=== PATIENT | female | born 1965 | race Caucasian/White ===

== ENCOUNTER → 2017-06-25 | Outpatient (CLI) | payer BC ==
--- NOTE | 2017-06-25 12:34 | DIAGNOSTIC IMAGING REPORT ---
LEFT SHOULDER MRI HISTORY: Left shoulder pain. TECHNIQUE: Multiplanar multisequence MRI of the left shoulder was performed without contrast. COMPARISON STUDY: None. FINDINGS: AC joint: There is moderate AC joint arthrosis demonstrated by subchondral edema/cystic change and mild surrounding soft tissue edema. Rotator cuff: The subscapularis and teres minor tendons are intact. Small partial bursal surface tear seen within the distal infraspinatus tendon. There is also a focal full-thickness tear of the supraspinatus tendon which measures approximate 17 x 13 mm. There is edema at the musculotendinous junction of the supraspinatus muscle. Trace fluid within the subacromial/subdeltoid bursa. Mild fatty atrophy of the supraspinatus muscle. Labrum: Abnormal signal configuration the superior labrum consistent with a SLAP tear. Biceps tendon: Increased signal within the proximal long head of the biceps tendon consistent with a mild tendinopathy. Bones: No fracture or dislocation. Cartilage: Mild cartilage thinning within the humeral head and glenoid. Miscellaneous: Punctate hypointense focus adjacent to the musculotendinous junction of the supraspinatus which may be due to old postoperative change. IMPRESSION: 1. Focal 17 x 13 mm full-thickness tear of the supraspinatus tendon without significant retraction. 2. There is also small partial tear at the bursal surface of the distal infraspinatus tendon. 3. SLAP tear. Electronically signed by: Terry Marrero M.D. 06/25/2017 12:32 PM Dictated Date/Time: 06/25/2017 12:25 PM
== END | disposition home or self-care (01) ==
LOC: C.MRIBC 10:43
PROVIDERS: ATTEND Orthopaedic Surgery
DX: S46.912A Strain of unspecified muscle, fascia and tendon at shoulder and upper arm level, left arm, initial encounter (principal); X58.XXXA Exposure to other specified factors, initial encounter

== ENCOUNTER → 2017-07-31 | Day surgery (SDC) | payer BC ==
[2017-07-15 10:53] VITALS: Ht 162.6 cm; Wt 67.3 kg
[~2017-07-31] VITALS: Ht 162.6 cm; Wt 67.3 kg
[~2017-07-31] MED LIST: ATROPINE SULFATE 0.1 MG/ML 5ML SYR IV PRN; BUPIVACAINE 0.25% 30 ML VIAL ONE; BUPIVACAINE 0.5 % 5 MG/1 ML MPF 30ML VIAL ONE; CEFAZOLIN 2000MG IV PUSH 15 ML IV SCH; DEXAMETHASONE SOD INJ 4 MG/ML VIAL ONE; DOXY25TA19 PO; EpHEDrine SULFATE INJ 50 MG/ML AMP IV PRN; EpINEphrine INJ 1MG/ML AMP 1 MG/ML AMP ONE; FENTANYL CITRATE INJ 50 MCG/1 ML 2 ML VIAL IV PRN; FENTANYL CITRATE INJ 50 MCG/1 ML 2 ML VIAL ONE; KETO10TA PO; KETOROLAC TROMETHAMINE 30 MG/ML VIAL IV. PRN; LACTATED RINGER'S 1000ML 1,000 ML IV SCH; LIDOCAINE HCL 2% 2 ML VIAL (20MG/ML) ONE; MIDAZOLAM HCL 1 MG/ML 2ML VIAL ONE; ONDANSETRON INJ 2 MG/ML 2 ML VIAL IV PRN; ONDANSETRON INJ 2 MG/ML 2 ML VIAL ONE; OXYC-57 PO; OXYCODONE/ACETAMINOPHEN 5-325 TAB PO PRN; PROMETHAZINE HCL INJ 6.25 MG in SODIUM CHLORIDE 0.9% 50ML 50 ML IV PRN; PROPOFOL IV EMULSION 10 MG/ML 20 ML VIAL IV ONE; SODIUM CHLORIDE 0.9% 1000ML 1,000 ML IV SCH
--- NOTE | 2017-07-31 09:28 | History & Physical Bridge - SC ---
H&P Re-Evaluation Bridge Note: I have examined the patient, reviewed the History & Physical and in the interval since the performance of the History & Physical I have noted the following changes of clinical significance: No changes noted
--- NOTE | 2017-07-31 11:58 | [facility] Post Operative Brief Note ---
Immediate Operative Summary Operative Date Jul 31, 2017. Pre-Operative Diagnosis Chronic pain right upper limb, full thickness tear Post-Operative Diagnosis same as preop Procedure(s) Performed Left Shoulder Arthroscopic Medium Rotator cuff Repair with Extensive Debridement Surgeon Dr. Castro Collections Assistant Surgeon(s) GALEN Farmer Estimated Blood Loss 5ML Findings Consistent with Post-Op Diagnosis Specimens none Anesthesia Type MAC Regional Complication(s) none Disposition Disposition: Recovery Room / PACU
[2017-07-31 12:06] VITALS: TEMP 36.6
--- NOTE | 2017-07-31 12:10 | Discharge Instructions-SurgCtr ---
Discharge Instructions Date of Service Jul 31, 2017. Visit Reason for Visit: Chronic Pain Right Upper Limb, Full Thickness Tear Discharge Discharge Diagnosis / Problem: SAME ABOVE Discharge Goals Goal(s): Decrease discomfort, Improve function Activity Recommendations Activity Limitations: as noted below Lifting Limitations: until after follow-up appointment Shower/Bathe: tomorrow Anesthesia . Post Anesthesia Instructions: If you have had General Anesthesia or IV Sedation: * Do not drive today. * Resume driving when surgeon permits. * Do not make important decisions or sign legal documents today. * Call surgeon for: 1. Temperature elevations greater than 101 degrees F. 2. Uncontrollable pain. 3. Excessive bleeding. 4. Persistent nausea and vomiting. 5. Medication intolerance (nausea, vomiting or rash). * For nausea and vomiting use only clear liquids such as: tea, soda, bouillon until nausea subsides, then gradually increase diet as tolerated. * If you have any concerns or questions, call your surgeon's office. If physician is unavailable and it is an emergency, call 911 or go to the nearest emergency room. . Instructions / Follow-Up Instructions / Follow-Up MEDICATIONS: * Resume previous medications unless instructed otherwise by your surgeon. * Always take pain medication on a full stomach or with food to avoid upset stomach. * Do not drink alcohol or drive while taking narcotics. * Ibuprofen or Tylenol may be taken if narcotic not needed. SPECIAL CARE INSTRUCTIONS: __ None _X_ Keep extremity elevated and iced x 48 hours; apply ice 20-30 minutes 8-10 times/day. May remove at night. __ Sling __24 hrs/day __ Remove at night _X_ Shoulder Immobilizer (MAY REMOVE AFTER 48 HOURS ONLY TO SHOWER AND FOR THERAPY) _X_ 24 hrs/day __ Remove at night _X_ Dressing __ Maintain until seen in office, may shower with plastic over site _X_ Remove dressings in 24-48 hours and then may shower _X_ Cover incisions with band-aids after showering __ Do not remove steri-strips Call physician if chills or temperature rises above 102 degrees or pain unrelieved by prescribed pain medications at . . Diet Recommendations Home Diet: no limitations Fluid Restriction: None Procedures Procedures Performed: Left Shoulder Arthroscopic Medium Rotator cuff Repair with Extensive Debridement Pending Studies Studies pending at discharge: no Work Instructions Return To Work: after follow-up Lifting Limitations: NO LIFTING WITH RIGHT ARM Medical Emergencies . Who to Call and When: Medical Emergencies: If at any time you feel your situation is an emergency, please call 911 immediately. . Non-Emergent Contact Non-Emergency issues call your: Primary Care Provider Call Non-Emergent contact if: you have a fever, temperature is above 101.5 . . "Provider Documentation" section prepared by Osman Chavira. .
--- NOTE | 2017-07-31 12:41 | Anesthesia Progress Nt - [facility] ---
Anesthesia Post Op Note Date & Time Jul 31, 2017 at 12:41 Vital Signs Pain Intensity: 0 Vital Signs Past 12 Hours Date Time Temp Pulse Resp B/P (MAP) Pulse Ox O2 Delivery O2 Flow Rate FiO2 07/31/17 12:06 36.6 84 16 99/61 (74) 99 Room Air 07/31/17 10:36 102/71 07/31/17 10:32 69 07/31/17 10:32 70 99 07/31/17 10:31 119/79 07/31/17 10:27 75 07/31/17 10:27 75 100 07/31/17 10:26 106/76 07/31/17 10:22 75 07/31/17 10:22 73 99 07/31/17 09:34 36.9 83 18 106/75 (85) 100 Room Air Notes Mental Status: alert / awake / arousable, participated in evaluation Pt Amnestic to Procedure: Yes Nausea / Vomiting: adequately controlled Pain: adequately controlled Airway Patency, RR, SpO2: stable & adequate BP & HR: stable & adequate Hydration State: stable & adequate Anesthetic Complications: no major complications apparent Block working well in pacu
[2017-07-31 12:42] VITALS: BP 98/65; PULSE 78; O2SAT 99
--- NOTE | 2017-07-31 14:27 | OPERATIVE REPORT ---
DATE OF OPERATION: 07/31/2017 PREOPERATIVE DIAGNOSIS: Medium sized rotator cuff tear of the left shoulder. POSTOPERATIVE DIAGNOSIS: Same. PROCEDURE: Left shoulder diagnostic arthroscopy with extensive debridement and medium sized rotator cuff repair. SURGEON: Dr. Constantino Castro. TECHNICAL SPECIALIST CYTOGENETICS: Austin Chavira PA-C, whose assistance was necessary for positioning the arm and helping with instrumentation. ANESTHESIA: Sedation with a left interscalene nerve block. COMPLICATIONS: None. CONDITION: Stable to PACU. INDICATIONS: Alma is a pleasant 52-year-old female who had a left shoulder arthroscopy done 18 months ago in [place]. She had a decompression and distal clavicle resection at that time. Unfortunately, she never did well postoperatively and followup MRI in my office did show a medium size rotator cuff tear. She elected to undergo arthroscopy. DESCRIPTION OF PROCEDURE: On 07/31/2017, she arrived at [facility] for the above procedure. She was seen in preoperative holding and the operative extremity was identified and signed. She was given a preoperative antibiotic and a left interscalene nerve block. She was taken back to the operating room, laid on the table in supine position and put under basic sedation. She was then put into the beach chair position. The left shoulder was prepped and draped in sterile fashion. Time-out was done. The patient's operative extremity was properly identified. A scope was introduced into the posterior portal. Diagnostic arthroscopy showed no cartilage damage to the glenoid. There was a large area of grade 4 chondral changes off the posterior superior aspect of the humeral head. It did not engage with the glenoid with the arm in neutral, but as soon as I went about 20 degrees of external rotation, it was fully engaged. There was some fraying of the anterior labrum. The biceps tendon was absent from previous surgery. There was a tear of the supraspinatus. The anterior cable was still intact. The subscapularis was intact. An anterior portal was made. A shaver was used to start a debridement of some of the intra-articular structures. The scope was then put into the subacromial space. A lateral portal was made. A shaver was used to do a complete subacromial and subdeltoid bursectomy. Significant time was spent debriding back tissue that was adhered from the previous surgery. There was a lot of scar tissue that went from the rotator cuff up to the undersurface of the acromion and at all needed to be debrided and removed. Attention was then turned to the rotator cuff. There was a medium size crescent-shaped rotator cuff tear. An additional anterolateral portal was made and Vicki cannulas were placed in each lateral portal. The greater tuberosity was then prepared with a ring curette and microfracture. The rotator cuff was then fixed with an Arthrex SpeedBridge configuration using BioComposite SwiveLock suture anchors and FiberTapes. Multiple pictures were taken. The scope was placed back into the glenohumeral joint and the articular margin of the rotator cuff had been restored. Pictures were taken. Arthroscopic instruments were removed from the shoulder. Portal sites were closed with 3-0 nylon. She was then placed in a soft dressing and abduction arm sling. She was then extubated, transferred to a litter and taken to the postanesthesia care unit in stable condition. She tolerated the procedure well. I attest to the content of the Intraoperative Record and any orders documented therein. Any exception s are noted below.
== END | disposition home or self-care (01) ==
LOC: X.SURG 09:17
PROVIDERS: ATTEND Orthopaedic Surgery
DX: M75.102 Unspecified rotator cuff tear or rupture of left shoulder, not specified as traumatic (principal); Z90.49 Acquired absence of other specified parts of digestive tract; Z90.710 Acquired absence of both cervix and uterus; Z83.3 Family history of diabetes mellitus; Z82.3 Family history of stroke; Z80.42 Family history of malignant neoplasm of prostate